=== PATIENT | male | born 1950 | race Caucasian/White ===

== ENCOUNTER → 2023-03-06 10:04 | Outpatient (CLI) | payer MEDICARE, OTHER, SELFPAY ==
--- NOTE | 2023-03-06 10:08 | DI.US.S_ITS ---
PROCEDURE: US CAROTID DOPPLER BI INDICATIONS: BRADYCARDIA, UNSPECIFIED TECHNIQUE: Color and pulse Doppler interrogation was performed of both carotid systems, with image documentation and velocity measurements. COMPARISON: None. FINDINGS: Stenosis calculations are based on SRU (S[employer] Radi[employer] in Ultras[employer]) criteria. Right side: Brachial blood pressure: 142/72 mm Hg. Common carotid artery peak systolic velocity: 60 cm/sec. Internal carotid artery peak systolic velocity: 64 cm/sec. Internal carotid artery end diastolic velocity: 75 cm/sec. External carotid artery peak systolic velocity: 100 cm/sec. ICA/CCA peak systolic ratio: 1.27. Baker scale imaging description: Mild plaque. Percent internal carotid artery stenosis: Less than 50% stenosis. Vertebral artery: Flow direction is antegrade. Left side: Brachial blood pressure: 122/71 mm Hg. Common carotid artery peak systolic velocity: 78 cm/sec. Internal carotid artery peak systolic velocity: 81 cm/sec. Internal carotid artery end diastolic velocity: 68 cm/sec. External carotid artery peak systolic velocity: 125 cm/sec. ICA/CCA peak systolic ratio: 1.04. Baker scale imaging description: Moderate plaque. Percent internal carotid artery stenosis: Less than 50% stenosis. Vertebral artery: Flow direction is antegrade. IMPRESSION: 1. Right ICA: Less than 50 % stenosis. 2. Left ICA: Less than 50 % stenosis. 3. Antegrade flow in the bilateral vertebral arteries. Dictated by: Hubert Barrett M.D. on 03/06/2023 at 13:09 Approved by: Hubert Barrett M.D. on 03/06/2023 at 13:11
--- NOTE | 2023-03-06 10:09 | DI.NM.S_ITS ---
PROCEDURE: NM KARLY PERF SPECT REST & STR Rest and exercise myocardial perfusion SPECT with gated imaging and ejection fraction RADIOPHARMACEUTICAL: 11.5 mCi Tc-99m sestamibi IV at rest and 25.0 mCi Tc-99m sestamibi IV at peak exercise. A [id number] was performed. INDICATIONS: Bradycardia, unspecified TECHNIQUE: Radiopharmaceutical was injected at peak stress test, and also at rest. SPECT images were obtained. SPECT myocardial perfusion images were displayed in short axis, horizontal long axis, and vertical long axis views. Gated images were reviewed using [employer] software. COMPARISON: None. CARDIAC STRESS: A standard Gil treadmill exercise tolerance test was performed by the patient under the supervision of an attending staff. The patient exercised for 7 minutes and 0 seconds; 10.1 METS; functional aerobic impairment (KRISTIE) is -9%. Hemodynamic data: There is normal blood pressure and heart rate response to exercise stress. Patient achieved 112% of maximum predicted heart rate at peak exercise. Maximum blood pressure 172/90. Symptoms: Patient denied chest pain during exercise. EKG: No diagnostic EKG changes of ischemia; no arrhythmia; PACs became more frequent with exercise. FINDINGS: Raw data: There is good myocardial labeling by radiotracer. No significant motion artifacts. Zntx-cy-[id number] ratio is 0.25 (normal is less than 0.38 for sestamibi tracer, and less than 0.50 for thallium tracer). Left ventricle function: Gated images demonstrate normal left ventricle wall thickening. No segmental wall motion abnormality. No transient ischemic dilation; TID is 1.05 (normal less than 1.3). The left ventricle resting end-diastolic volume is 84 mL. Left ventricle stress ejection fraction is 72%; normal values are above 45%. Myocardial perfusion: There is a small size, mild intensity fixed inferolateral wall defect that resolves in prone imaging. No reversible perfusion defects. IMPRESSION: Low risk study without inducible ischemia. The small size, mild intensity fixed inferolateral wall defect completely resolves in prone imaging. This along with normal wall motion makes this most consistent with attenuation artifact. Normal LV function. PACs noted at baseline with an increase in frequency with exercise. Normal hemodynamic response. Average exercise capacity. Dictated by: Sharyn Ugarte D.O. on 03/06/2023 at 16:30 Approved by: Sharyn Ugarte D.O. on 03/06/2023 at 16:50
== END ==
PROVIDERS: Family Provider Family Medicine Geriatric Medicine; PCP Family Medicine; Referring Provider Internal Medicine Cardiovascular Disease; Visit Provider Internal Medicine Cardiovascular Disease
DX: I45.10 Unspecified right bundle-branch block (principal); R00.1 Bradycardia, unspecified; I65.23 Occlusion and stenosis of bilateral carotid arteries
CPT/HCPCS: 78452; 93880